=== PATIENT | male | born 1955 | race Caucasian/White ===

== ENCOUNTER 2022-12-23 15:09 | Outpatient (REF) | payer MEDICARE, MEDICAID, SELFPAY ==
--- NOTE | 2022-12-23 13:30 | ORMUBX_PTH ---
PATIENT: Constantino Mendez LOC: [facility] U#:[id number] AGE/SX: 67/M ROOM: RE12/23/[address]: Bernardo Collins MD : 1955 BED: DIS: 12/23/2022 SPEC #: [id number] RECD: 12/23/22 18:01 STATUS: ALVERTO REEdi #: [id number] GAETANO: 12/23/22 13:[address]: Bernardo Collins DEPT: Surgical Specimen RECD BY: Carleen Hodges ENTERED: 12/23/22 18:02 SP TYPE: ORMUBX OTHR DR: Nickolas Yadav Tissues: 1 - MUCOSA, NOS Procedures: GROSS AND MICRO LEVEL 4 IMMUNOPEROXIDASE STAIN Comments: [id number]
== END 2022-12-23 15:10 | disposition home or self-care (01) ==
LOC: LBN 15:09
PROVIDERS: PCP Physician Assistant Medical; Visit Provider Otolaryngology
DX: C04.9 Malignant neoplasm of floor of mouth, unspecified (principal); E11.9 Type 2 diabetes mellitus without complications; F12.20 Cannabis dependence, uncomplicated
CPT/HCPCS: 88305; 88361